=== PATIENT | female | born 1955 | race Caucasian/White ===

== ENCOUNTER 2021-05-03 15:04 | Outpatient (CLI) | payer BC | END 2021-05-03 15:05 | disposition home or self-care (01) | LOC: CSHMAMMO 15:04 | PROVIDERS: ATTEND Family Medicine | DX: Z12.31 Encounter for screening mammogram for malignant neoplasm of breast (principal); Z85.3 Personal history of malignant neoplasm of breast | CPT/HCPCS: 77063; 77067 ==

== ENCOUNTER 2022-05-09 10:26 | Outpatient (CLI) | payer BC | END 2022-05-09 10:27 | disposition home or self-care (01) | LOC: CSHMAMMO 10:26 | PROVIDERS: ATTEND Family Medicine | DX: Z12.31 Encounter for screening mammogram for malignant neoplasm of breast (principal); R92.1 Mammographic calcification found on diagnostic imaging of breast; Z85.3 Personal history of malignant neoplasm of breast; Z86.018 Personal history of other benign neoplasm; Z98.890 Other specified postprocedural states | CPT/HCPCS: 77063; 77067 ==

== ENCOUNTER 2023-05-22 12:04 | Outpatient (CLI) | payer OTHER | END 2023-05-22 12:05 | disposition home or self-care (01) | LOC: CSHMAMMO 12:04 | PROVIDERS: ATTEND Family Medicine | DX: Z12.31 Encounter for screening mammogram for malignant neoplasm of breast (principal); Z85.3 Personal history of malignant neoplasm of breast | CPT/HCPCS: 77063; 77067 ==